=== PATIENT | male | born 1990 | race African-American/Black ===

== ENCOUNTER 2016-05-12 08:31 | Emergency (ER) | payer SELFPAY ==
[~2016-05-12] VITALS: Ht 180.3 cm; Wt 68.0 kg
[2016-05-12] MEDS ORDERED: NKM (08:41)
[2016-05-12 09:13] VITALS: BP 120/80
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
== END 2016-05-12 09:14 ==
LOC: EDBD 08:31 → EMR 08:55
DX: Z02.89 Encounter for other administrative examinations (principal); Z91.419 Personal history of unspecified adult abuse
CPT/HCPCS: 99283